=== PATIENT | female | born 2000 | race African-American/Black ===

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

== ENCOUNTER 2023-05-05 12:41 | Outpatient (CLI) | payer BC | END 2023-05-05 12:42 | disposition home or self-care (01) | LOC: BICCT 12:41 | PROVIDERS: ATTEND Internal Medicine | DX: G43.909 Migraine, unspecified, not intractable, without status migrainosus (principal); J34.89 Other specified disorders of nose and nasal sinuses | CPT/HCPCS: 70450 ==